=== PATIENT | male | born 1980 | race Hispanic/Latino ===

== ENCOUNTER 2021-03-19 14:17 | Emergency (ER) | payer OTHER ==
[~2021-03-19] VITALS: Ht 177.8 cm; Wt 90.7 kg
[2021-03-19] MEDS ORDERED: PENICILLIN V P500 MG PO (15:55)
== END 2021-03-19 16:00 | disposition home or self-care (01) ==
LOC: ED 14:17
DX: K04.7 Periapical abscess without sinus (principal); F17.200 Nicotine dependence, unspecified, uncomplicated
CPT/HCPCS: 80053; 82150; 85025; 99283